=== PATIENT | female | born 1950 | race Caucasian/White ===

== ENCOUNTER → 2016-09-15 | Outpatient (CLI) | payer MEDICARE, OTHER ==
[~2016-09-15] MED LIST: CLR5 PO
--- NOTE | 2016-09-15 09:24 | DIAGNOSTIC IMAGING REPORT ---
CHEST 2 VIEWS ROUTINE HISTORY: Cough. J159 PNEUMONIA COMPARISON: None. FINDINGS: The lungs are clear. Cardiac silhouette is normal in size. No pleural effusions. No pneumothorax. IMPRESSION: No acute process. Electronically signed by: Bryn Walsh M.D. 09/15/2016 9:23 AM Dictated Date/Time: 09/15/2016 9:22 AM
== END | disposition home or self-care (01) ==
LOC: C.RADBC 09:03
PROVIDERS: ATTEND Family Medicine
DX: J15.9 Unspecified bacterial pneumonia (principal)

== ENCOUNTER → 2016-10-07 | Outpatient (CLI) | payer MEDICARE, OTHER ==
--- NOTE | 2016-10-07 15:07 | MAMMOGRAPHY REPORT ---
BILATERAL DIGITAL SCREENING MAMMOGRAM WITH CAD: 10/07/2016 CLINICAL HISTORY: Routine screening. Patient has no complaints. TECHNIQUE: Current study was also evaluated with a Computer Aided Detection (CAD) system. Bilatera l CC and MLO views were obtained. COMPARISON: Comparison is made to exams dated: 09/25/2015 mammogram, 07/25/2014 mammogram, 07/24/2013 mammogram, 07/21/2012 mammogram, 06/15/2011 mammogram, and 06/12/2010 mammogram - [facility]. BREAST COMPOSITION: The tissue of both breasts is extremely dense, which lowers the sensitivity of mammography. FINDINGS: No suspicious masses, calcifications, or areas of architectural distortion are noted in e ither breast. There has been no significant interval change compared to prior exams. IMPRESSION: ACR BI-RADS CATEGORY 1: NEGATIVE There is no mammographic evidence of malignancy. A 1 year screening mammogram is recommended. The p atient will receive written notification of the results. Approximately 10% of breast cancers are not detected with mammography. A negative mammographic repor t should not delay biopsy if a clinically suggestive mass is present. Lupis Johnson M.D. /:10/07/2016 14:38:14 [place]: Acacia BAUER(Guerda)(Bharat), [facility] letter sent: Normal 1/2 BI-RADS Code: ACR BI-RADS Category 1: Negative
== END | disposition home or self-care (01) ==
LOC: C.MAMM 10:11
PROVIDERS: ATTEND Family Medicine
DX: Z12.31 Encounter for screening mammogram for malignant neoplasm of breast (principal)

== ENCOUNTER → 2017-10-11 | Outpatient (CLI) | payer OTHER ==
--- NOTE | 2017-10-11 12:51 | MAMMOGRAPHY REPORT ---
BILATERAL DIGITAL SCREENING MAMMOGRAM TOMOSYNTHESIS WITH CAD: 10/11/2017 CLINICAL HISTORY: Routine screening. Patient has no complaints. TECHNIQUE: Breast tomosynthesis in addition to standard 2D mammography was performed. Current study was also evaluated with a Computer Aided Detection (CAD) system. COMPARISON: Comparison is made to exams dated: 10/07/2016 mammogram, 09/25/2015 mammogram, 07/25/2014 ma mmogram, 07/24/2013 mammogram, 07/21/2012 mammogram, and 06/15/2011 mammogram - [facility]. BREAST COMPOSITION: The tissue of both breasts is extremely dense, which lowers the sensitivity of m ammography. FINDINGS: There are minimal vascular calcifications in the breasts. No obvious new mass, architectur al distortion or cluster of suspicious microcalcifications is seen. IMPRESSION: ACR BI-RADS CATEGORY 1: NEGATIVE There is no mammographic evidence of malignancy. A 1 year screening mammogram is recommended. The pa tient will receive written notification of the results. Approximately 10% of breast cancers are not detected with mammography. A negative mammographic report should not delay biopsy if a clinically suggestive mass is present. Tiffany Stiles M.D. ay/:10/11/2017 09:02:39 [employer]: Acacia BAUER(R)(Bharat), [facility] letter sent: Normal 1/2 BI-RADS Code: ACR BI-RADS Category 1: Negative
== END | disposition home or self-care (01) ==
LOC: C.MAMM 08:40
PROVIDERS: ATTEND Family Medicine
DX: Z12.31 Encounter for screening mammogram for malignant neoplasm of breast (principal)